=== PATIENT | male | born 1985 | race Caucasian/White ===

== ENCOUNTER 2018-10-02 14:38 | Emergency (ER) | payer SELFPAY ==
[~2018-10-02] VITALS: Ht 175.2 cm; Wt 59.0 kg
--- NOTE | ~2018-10-02 | EKG ---
[place], [place] ELECTROCARDIOGRAM REPORT NAME: MELISSA RUIZ UNIT #: [id number] ROOM: DOCTOR: EPIPHANY DRAFT REPORT BIRTHDATE: [birth year] [facility] Test Date: 2018-10-02 Test Time: 15:26:25 Pat Name: MELISSA RUIZ Department: Room: Gender: Gym Manager: Jami Maxwell : 1985 Requested By: URSULA OMROCHO PA-C Order Number: [id number] Reading MD: Kory Garcia MD Measurements Intervals [place] Rate: 88 P: 86 FL: 114 QRS: 17 QRSD: 82 T: 87 QT: 337 QTc: 408 Interpretive Statements Sinus rhythm Borderline short [place] interval Probable left atrial enlargement Nonspecific ST depression No previous ECG available for comparison Electronically Signed On 10-02-2018 14:50:12 PDT by Kory Garcia MD CM:EKGRPT:ELECTROCARDIOGRAM REPORT [id number] URSULA MOROCHO PA-C EPIPHANY DRAFT REPORT URSULA MOROCHO PA-C
[~2018-10-02 14:38] MED LIST: TRAMADOL HCL50 MG PO; TRIMOX500 MG PO; VIBRA-TAB100 MG PO
[2018-10-02 15:12] LABS: BASO # 0.1 10*3/uL (0.0-0.1); BASO % 0.4 % (0.0-1.0); EOS # 0.1 10*3/uL (0.0-0.4); EOS % 0.7 % (1.0-4.0); HEMATOCRIT 45.8 % (42.0-52.0); HEMOGLOBIN 15.3 g/dl (14.0-18.0); LYMPH # 2.5 10*3/uL (1.3-4.4); LYMPH % 15.9 % (27.0-41.0); MEAN CELL VOLUME 97.4 fl (80.0-94.0); MEAN CORPUSCULAR HGB 32.6 pg (27.0-31.0); MEAN CORPUSCULAR HGB CONC 33.4 g/dl (33.0-37.0); MEAN PLATELET VOLUME 9.5 fl (9.6-12.3); MONO # 1.1 10*3/uL (0.1-1.0); MONO % 6.9 % (3.0-9.0); NEUT % 75.4 % (47.0-73.0); PLATELET COUNT AUTOMATED 224 10*3/uL (130-400); RED CELL DISTRI WIDTH 12.8 % (0-14.5)
[2018-10-02 15:36] LABS: ALBUMIN 3.9 gm/dl (3.1-4.5); ALKALINE PHOSPHATASE 80 U/L (45-117); BUN 12 mg/dl (7-24); CHLORIDE 104 mmol/L (98-107); CREATININE 0.95 mg/dL (0.70-1.30); POTASSIUM 3.9 mmol/L (3.5-5.1); SGOT/AST 21 IU/L (3-35); SGPT/ALT 43 U/L (12-78); SODIUM 136 mmol/L (136-145); TOTAL PROTEIN 7.5 gm/dL (6.4-8.2)
[2018-10-02 15:41] LABS: BILIRUBIN NEGATIVE (NEGATIVE); BLOOD 2+ (NEGATIVE); CLARITY CLEAR (CLEAR); COLOR YELLOW (YELLOW); GLUCOSE NEGATIVE (NEGATIVE); KETONE NEGATIVE (NEGATIVE); LEUKO ESTERASE NEGATIVE (NEGATIVE); NITRITE NEGATIVE (NEGATIVE); SPECIFIC GRAVITY 1.015 (1.005-1.030); UROBILINOGEN 0.2 E.U./dl (0.2-1.0)
[2018-10-02 15:41] LABS: ACETAMINOPHEN (TYLENOL) < 5.0 ug/ml (10-30); ETHYL ALCOHOL < 3.0 mg/dl (<3)
[2018-10-02 15:48] LABS: URINE AMPHETAMINES < 1000 (1000ng/ml); URINE BARBITURATES < 200 (200ng/ml); URINE BENZODIAZEPINES < 200 (200ng/ml); URINE CANNABINOIDS (THC) < 50 (50ng/ml); URINE COCAINE < 300 (300ng/ml); URINE METHADONE < 300 (300ng/ml); URINE OPIATES < 300 (300ng/ml); URINE PHENCYCLIDINE < 25 (25ng/ml)
[2018-10-02 15:54] LABS: BACTERIA TRACE; RBC 21-30 rbc/hpf (0-2); WBC 0-2 wbc/hpf (0-5)
[2018-10-02] MEDS ORDERED: CLINDAMYCIN HC300 MG PO (16:01)
[2018-10-04 04:04] LABS: GONOCOCCUS BY NAA Negative (Negative)
== END 2018-10-02 16:30 | disposition home or self-care (01) ==
LOC: ED 14:38
PROVIDERS: Physician Assistant
DX: K04.7 Periapical abscess without sinus (principal); R31.9 Hematuria, unspecified; F12.90 Cannabis use, unspecified, uncomplicated; Z20.2 Contact with and (suspected) exposure to infections with a predominantly sexual mode of transmission; Z59.0 Homelessness; Z72.0 Tobacco use

== ENCOUNTER 2023-04-17 09:55 | Emergency (ER) | payer SELFPAY ==
[~2023-04-17] VITALS: Ht 172.7 cm; Wt 59.0 kg
[~2023-04-17 09:55] MED LIST changes: +CLINDAMYCIN HC300 MG PO
[2023-04-17] MEDS ORDERED: VIBRA-TAB100 MG PO (10:43)
[2023-04-17] MEDS ORDERED: Doxycycline Hyclate 100 MG CAP PO ONE (10:45)
== END 2023-04-17 10:48 | disposition home or self-care (01) ==
LOC: ED 09:55
DX: T23.001A Burn of unspecified degree of right hand, unspecified site, initial encounter (principal); B99.9 Unspecified infectious disease; T31.0 Burns involving less than 10% of body surface; Z98.890 Other specified postprocedural states; X08.8XXA Exposure to other specified smoke, fire and flames, initial encounter; Y93.G3 Activity, cooking and baking; Y92.89 Other specified places as the place of occurrence of the external cause; Y99.8 Other external cause status

== ENCOUNTER 2023-09-28 18:34 | Emergency (ER) | payer SELFPAY ==
[~2023-09-28] VITALS: Ht 172.7 cm; Wt 63.5 kg
[2023-09-28] MEDS ORDERED: AMOX-CLAV 875-1 EACH PO (19:03)
[2023-09-28] MEDS ORDERED: Amoxicillin/Clavulanate Pota 875 MG TAB PO ONE (19:05)
[2023-09-28] MEDS ORDERED: Tdap Vaccine 0.5 ML SYR (Adult Vaccine) IM ONE (19:05)
== END 2023-09-28 19:29 | disposition home or self-care (01) ==
LOC: ED 18:34
DX: S60.450A Superficial foreign body of right index finger, initial encounter (principal); Z98.890 Other specified postprocedural states; Z87.891 Personal history of nicotine dependence; W45.8XXA Other foreign body or object entering through skin, initial encounter; Y93.89 Activity, other specified; Y92.89 Other specified places as the place of occurrence of the external cause; Y99.8 Other external cause status

== ENCOUNTER 2023-10-05 11:05 | Emergency (ER) | payer SELFPAY ==
[~2023-10-05] VITALS: Ht 172.7 cm; Wt 63.5 kg
[~2023-10-05 11:05] MED LIST changes: +AMOX-CLAV 875-1 EACH PO
[2023-10-05] MEDS ORDERED: LIDOCAINE 1 EA PATCH T ONE (12:20)
[2023-10-05] MEDS ORDERED: ACETAMINOPHEN 325 MG TAB PO ONE (12:20)
[2023-10-05] MEDS ORDERED: IBUPROFEN 400 MG TAB PO ONE (12:20)
== END 2023-10-05 12:38 | disposition home or self-care (01) ==
LOC: ED 11:05
DX: R07.89 Other chest pain (principal); Z98.890 Other specified postprocedural states; Z87.891 Personal history of nicotine dependence

== ENCOUNTER 2023-10-06 16:01 | Emergency (ER) | payer SELFPAY ==
[~2023-10-06] VITALS: Ht 172.7 cm; Wt 63.5 kg
== END 2023-10-06 16:42 | disposition home or self-care (01) ==
LOC: ED 16:01
DX: S50.851A Superficial foreign body of right forearm, initial encounter (principal); Z98.890 Other specified postprocedural states; W45.8XXA Other foreign body or object entering through skin, initial encounter; Y93.89 Activity, other specified; Y92.89 Other specified places as the place of occurrence of the external cause; Y99.8 Other external cause status

== ENCOUNTER 2024-07-31 12:01 | Emergency (ER) | payer SELFPAY ==
[~2024-07-31] VITALS: Wt 63.5 kg
[2024-07-31] MEDS ORDERED: IBUPROFEN 600 MG TAB PO ONE (12:20)
[2024-07-31] MEDS ORDERED: methylPREDNISolone acetate 40 MG/ML VIAL IM ONE (12:20)
== END 2024-07-31 12:29 | disposition home or self-care (01) ==
LOC: ED 12:01
DX: S60.461A Insect bite (nonvenomous) of left index finger, initial encounter (principal); W57.XXXA Bitten or stung by nonvenomous insect and other nonvenomous arthropods, initial encounter; Y93.89 Activity, other specified; Y92.89 Other specified places as the place of occurrence of the external cause; Y99.8 Other external cause status